=== PATIENT | male | born 1990 | race Two or more races ===

== ENCOUNTER 2017-05-25 19:14 | Emergency (ER) | payer MEDICAID ==
[2017-05-25 19:18] VITALS: RESP 16
--- NOTE | 2017-05-25 19:23 | EDPHY ---
H & P Stated Complaint: URI and abd pain Time Seen by Provider: 05/25/17 19:23 - Personal History Current Tetanus/Diphtheria Vaccine: Unsure Current Tetanus Diphtheria and Acellular Pertussis (TDAP): Unsure - Medical/Surgical History Hx Asthma: No Hx Chronic Respiratory Disease: No Hx Diabetes: No Hx Cardiac Disease: No Hx Renal Disease: No Hx Cirrhosis: No Hx Alcoholism: No Hx HIV/AIDS: No Hx Splenectomy or Spleen Trauma: No Other PMH: scoliosis - Social History Smoking Status: Current every day smoker Constitutional: Initial Vital Signs Temperature (C) 36.6 C 05/25/17 19:16 Heart Rate 99 05/25/17 19:16 Respiratory Rate 16 05/25/17 19:16 Blood Pressure 155/68 H 05/25/17 19:16 O2 Sat (%) 94 05/25/17 19:16 O2 Delivery Mode Room Air Allergies/Adverse Reactions: No Known Allergies Allergy (Verified 05/25/17 19:19) Home Medications: Medication Instructions Recorded No Home Meds 10/28/13 AZITHROMYCIN [Z-PACK] 250 mg PO DAILY #1 packet 05/25/17 Ibuprofen [Motrin] 800 mg PO Q8 #20 tab 05/25/17 Medical Decision Making ED Course/Re-evaluation: CHIEF COMPLAINT: "I've been sick for over a month" HISTORY OF PRESENT ILLNESS: The patient is a 26 y/o male complaining of mild left upper quadrant pain for and sinus pressure for the last month. He took Nyquil for symptoms with mild alleviation. He denies fever, cough, vomiting, diarrhea, or other symptoms. He denies trauma while in senior living. He states he is normally healthy. REVIEW OF SYSTEMS: A 10 point review of systems was performed and is negative with the exception of the elements mentioned in the history of present illness. PHYSICAL EXAM: HR, BP, O2 Sat, RR. Temp noted General Appearance: Alert, well hydrated, appropriate, and non-toxic appearing. Head: Atraumatic without scalp tenderness or obvious injury. Mild frontal sinus tenderness. Eyes: Pupils equal, round, reactive to light and accommodation, EOMI, no trauma , no injection. Ears: Clear bilaterally, no perforation, normal landmarks Nose: Atraumatic, no rhinorrhea, clear. Throat: There is no erythema or exudates, no lesions, normal tonsils, mucus membranes moist. Neck: Supple, nontender, no lymphadenopathy. Respiratory: No retractions, no distress, no wheezes, and no accessory muscle use. Lungs are clear to auscultation bilaterally. Cardiovascular: Regular rate and rhythm, no murmurs, rubs, or gallops. Good capillary refill all extremities. Gastrointestinal: Abdomen is soft, nontender, non-distended, no masses, no rebound, no guarding, no peritoneal signs. Musculoskeletal: Normal active ROM of all extremities, atraumatic. Neurological: Alert, appropriate, and interactive. The patient has non-focal cranial nerves, motor, sensory, and cerebellar exam. Skin: No rashes, good turgor, no nodules on palpation. Past medical history: Denies Past surgical history: Denies Family history: Noncontributory Social history: Homeless. Ketamine abuse. Just got out of senior living last week. Daily smoker. PCP: [facility] DIFFERENTIAL DIAGNOSIS: The differential diagnosis for the patient's symptoms included but was not limited to sinusitis, pneumonia, urinary tract infection, viral syndrome, meningitis, and sepsis. MEDICAL DECISION MAKING: This is a 26 y/o male who presents with a one-month history of sinus pressure and mild LUQ pain. He denies associated symptoms. He has tenderness over his frontal sinuses and a benign abdomen on exam. No indication for imaging. Plan for z-pack and standard cold care instructions. He will be referred to [facility] for follow up. He agrees with plan. Departure - Departure Disposition: Home, Routine, Self-Care Clinical Impression: Sinusitis Qualifiers: Sinusitis location: frontal Chronicity: acute Recurrence: non-recurrent Qualified Code(s): J01.10 - Acute frontal sinusitis, unspecified Condition: Good Instructions: Azithromycin (By mouth), Sinusitis (ED) Additional Instructions: 1. Take Z-pack as prescribed. Be sure to complete the entire prescription. 2. Use Tylenol and ibuprofen as needed for pain and fever. 3. Follow up with [facility] for unimproved symptoms over the next 3-4 days. Referrals: [facility],. [Clinic] - As per Instructions Prescriptions: AZITHROMYCIN [Z-PACK] 250 mg PO DAILY #1 packet Ibuprofen [Motrin] 800 mg PO Q8 #20 tab
[2017-05-25] MEDS ORDERED: IBUPROFEN 800 MG TAB PO ONE (20:00)
[2017-05-25] MEDS ORDERED: AZITHROMYCIN 250 MG TAB PO ONE (20:00)
[2017-05-25 20:12] VITALS: PULSE 92; O2SAT 95
[2017-05-25 20:14] VITALS: BP 120/75; TEMP 98.4
== END 2017-05-25 20:13 | disposition home or self-care (01) ==
DX: J01.10 Acute frontal sinusitis, unspecified (principal); F17.200 Nicotine dependence, unspecified, uncomplicated

== ENCOUNTER 2018-08-21 19:42 | Emergency (ER) | payer MEDICAID, OTHER ==
--- NOTE | 2018-08-21 21:42 | EDPHY ---
General Time Seen by Provider: 08/21/18 20:57 Narrative: CLINICAL IMPRESSION: Lumbar strain ASSESSMENT/PLAN: 28-year-old male presents to the emergency department with low back pain in the setting of heavy lifting at work. Patient is ambulatory with a steady gait, no footdrop, has intact patellar DTRs, intact distal neurovascular exam of the legs , negative straight leg raise test, and no reported bowel or bladder incontinence, urinary retention, saddle anesthesia. No clinical indication to suggest cauda equina, epidural abscess, occult infection, or neurovascular injury. His pain is reproducible to the paraspinal region of L5 radiating to bilateral SI joints. He has no reported pain in the lower extremities. I suspect this is a musculoskeletal injury. I do not feel he warrants an emergent MRI tonight. He has declined narcotic analgesics. He was advised to use [id number] anti-inflammatories and Tylenol, alternate ice and heat, and follow up with primary care. Warning signs for return to ED sooner outlined in discharge. DIFFERENTIAL DX: Differential includes but not limited to acute fracture, strain/sprain, joint dislocation, soft tissue contusion CHIEF COMPLAINT: Back pain HPI: 28-year-old otherwise healthy male presents to the emergency department with complaints of back pain in the setting of heavy lifting at his job. Patient reports he was lifting several 120 lb been tools of wire when he felt a pulling sensation in the low back. He continued to lift the heavy materials. No prior back injury or surgery. No loss of sensation to the legs or groin. No bowel or bladder incontinence or urinary retention. No abdominal pain. No fever or chills. He has not taken anything for the pain. PAST MEDICAL HISTORY: None reported, see ED triage note for more details Pertinent Past Surgical History: None reported Social History: Otherwise healthy, works in a job that involves heavy lifting REVIEW OF SYSTEMS: All other systems negative Constitutional: No fever, no chills Musculoskeletal: No deformity, + joint pain Skin: No rashes, color change or open wounds. Neurological: No sensory loss or weakness. PHYSICAL EXAM: General Appearance: Alert, oriented, appropriate for age, cooperative, NAD, well hydrated, non-toxic appearing, VSS, no hypoxia. Neurological: Alert and oriented x 3, normal sensation and strength of extremities Skin: Warm, dry, no rashes, no nodules on palpation. Musculoskeletal: Reproducible pain along the paraspinal muscles of bilateral L4 -5 S1 radiating to bilateral SI joints. This is worse with range of motion and rotation. Negative straight leg raise test. Ambulates with steady gait and without assistance. No footdrop. Rectal exam not performed Neurologic: Distal 2 point discrimination intact, patellar tendon reflexes 2+ bilaterally. Strength 5/5 bilateral lower extremities. No reported saddle anesthesia, bowel or bladder incontinence. MEDICAL DECISION MAKING: Patient was seen independently. Secondary supervising physician at time of evaluation was Dr. Tobin. Diagnosis: Musculoskeletal lumbar strain. New, requires workup Summary: See assessment and plan for summary of ED visit Independent visualization of images, tracing, or specimens not perform. Patient Progress: Improved . - History Smoking Status: Former smoker - Objective Vital Signs: Initial Vital Signs Temperature (C) 36.5 C 08/21/18 19:53 Heart Rate 76 08/21/18 19:53 Respiratory Rate 16 08/21/18 19:53 Blood Pressure 126/46 H 08/21/18 19:53 O2 Sat (%) 97 08/21/18 19:53 O2 Delivery Mode Room Air Allergies/Adverse Reactions: No Known Allergies Allergy (Verified 05/25/17 19:19) Home Medications: Medication Instructions Recorded NK [No Known Home Meds] 08/21/18 Departure - Departure Disposition: Home, Routine, Self-Care Clinical Impression: Lumbar strain Condition: Good Instructions: Low Back Strain (ED) Additional Instructions: DISCHARGE INSTRUCTIONS FROM YOUR DOCTOR Thank you for visiting our emergency department today. Please keep in mind that discharge from the emergency department does not mean that there is nothing wrong - it simply means that we have not identified an emergency condition that requires further evaluation or treatment in the hospital. You should always plan to follow up with primary care for re-evaluation of your condition in the next 2-3 days. If you have been referred to a specialist, please call as soon as possible (today or tomorrow) to schedule your follow up appointment at the appropriate time. PLEASE REST, USE IBUPROFEN IF NEEDED FOR PAIN, ALTERNATE ICE AND HEAT, AVOID HEAVY LIFTING OR ANY ACTIVITY THAT EXACERBATES THE PAIN. FOLLOW UP WITH A PRIMARY CARE DOCTOR IN 2-3 DAYS. RETURN TO THE EMERGENCY DEPARTMENT SOONER FOR WORSENING BACK PAIN, INABILITY TO WALK, BOWEL OR BLADDER INCONTINENCE, INABILITY TO EMPTY YOUR BLADDER, NUMBNESS TO THE GROIN OR LEGS, FEVERS OR ANY OTHER CONCERNS. People present with illnesses and injuries in different ways, and it is always possible that we have missed something. You may always return for re-evaluation if symptoms worsen or if they are not improving or if you develop new/different symptoms. Again, thank you for choosing our emergency department. We hope that you feel better. Referrals: NONE *PRIMARY CARE P,. [Primary Care Provider] - As per Instructions [facility],. [Clinic] - As per Instructions
[2018-08-21 22:07] VITALS: BP 130/72
== END 2018-08-21 22:06 | disposition home or self-care (01) ==
DX: S39.012A Strain of muscle, fascia and tendon of lower back, initial encounter (principal); X50.9XXA Other and unspecified overexertion or strenuous movements or postures, initial encounter; Y99.0 Civilian activity done for income or pay

== ENCOUNTER 2018-11-02 12:56 | Emergency (ER) | payer MEDICAID ==
--- NOTE | 2018-11-02 13:23 | EDPHY ---
General Time Seen by Provider: 11/02/18 13:22 Narrative: CLINICAL IMPRESSION: Lumbar back pain without radiculopathy ASSESSMENT/PLAN: Patient is a 28-year-old male with no significant medical history who presents with a complaint of low back pain after lifting and moving a heavy object last August. Patient is afebrile and not toxic appearing, he is in no acute distress on arrival. HSNE intact with no significant red flags. Lumbar spine xray today with no acute findings. Physical examination today is consistent with ongoing lumbar back pain without radiculopathy. He has had no saddle paresthesias, lower extremity numbness, tingling, major motor weakness, urinary retention or bowel/bladder incontinence. No indication for emergent MRI. There were no clinical findings to suggest vertebral osteomyelitis, acute fracture, cauda equina syndrome, epidural abscess/hematoma, epidural compression syndrome, renal colic, AAA, dissection, transverse myelitis, herpes zoster, or additional emergent intraabdominal infectious/obstructive process. Patient was given Toradol and a lidoderm patch was placed while in the ED with improvement of his pain. Patient reports difficulty with getting an appointment scheduled between his work schedule and [facility], case management provided resources and reassured him that there are walk-in appointments available at [facility]. He understands the importance of ongoing anti-inflammatory use and will continue the Lidoderm patch as needed. He also understands that he may need additional imaging or even physical therapy for further evaluation of his pain. On repeat exam he is well-appearing, very eager to leave the emergency department. He reports he is feeling much better and his neurological exam remained grossly normal with no focal deficit. Strict return precautions discussed- he will return for increased or unmanageable pain, new injury, new midline back pain, numbness, tingling, weakness of legs, loss of bowel or bladder control, saddle paresthesia , urinary retention, loss of bowel or bladder control, difficulty walking or for any other new, worsening or worrisome symptoms. Patient verbalizes understanding and he is in agreement with plan. DIFFERENTIAL DX: Back pain including but not limited to muscular pain, herniated disc, spine fracture, intra-abdominal causes and urinary tract infection. CHIEF COMPLAINT: Lumbar back pain HPI: Patient is a 28-year-old male with no significant medical history who presents to the emergency department with complaints of ongoing and worsening lumbar back pain after an injury that occurred this past August. Patient reports last August he was moving heavy stools of wire, he went to lift a stool when he experienced sudden onset of midline lumbar pain. He was seen and evaluated in the emergency department and reportedly diagnosed with a muscle strain. Patient has had ongoing and intermittent pain since that time. He reports that he has been unable to schedule an appointment for follow-up as recommended with [facility] secondary to his work schedule and their availability. He takes ibuprofen intermittently but not regularly. He denies any recent fevers, new trauma or injury. He denies any neck pain. He has had no chest pain, shortness of breath or abdominal pain. Patient denies saddle paresthesias, lower extremity numbness, tingling, major motor weakness, urinary retention or bowel/bladder incontinence. No history of IV drug use. PMH: Back pain Family History: Noncontributory Social History: Former smoker, denies frequent alcohol use, denies any history of IV drug use REVIEW OF SYSTEMS: All other systems negative Constitutional: No fever, no chills, appetite change. Eyes: No discharge, vision change ENT: No sore throat, congestion, ear pain. Cardiovascular: No chest pain, no palpitations. Respiratory: No cough, no shortness of breath. Gastrointestinal: No abdominal pain, no vomiting, diarrhea. Genitourinary: No hematuria, dysuria, flank pain, pelvic pain Musculoskeletal: No back pain, joint swelling, joint pain, myalgias. Skin: No rashes, color change. Neurological: No headache, dizziness, weakness. PHYSICAL EXAM: General Appearance: Alert, oriented, appropriate, cooperative, NAD, well hydrated, non-toxic appearing, VSS, no hypoxia. HENT: Normocephalic, atraumatic. Bilateral external ears are normal. Bilateral tympanic membranes are normal with pearly al reflex. Nares are clear, mucosa is pink. Oropharynx is clear, uvula is midline. There is no tonsillar enlargement or exudate. The dentition is normal. Eyes: PERRLA, no acute vision change, nystagmus, swelling, discharge, pain or photosensitivity. Conjunctiva pink, no pallor or injection Neck: Supple, nontender, no lymphadenopathy, no midline pain, FROM, no meningismus. Back: No step-off, palpable bony abnormality, edema, erythema or ecchymosis of the cervical, thoracic or lumbar spines. TTP: Midline lumbar spine. FROM of all spines. 5/5 and equal strength of the UEs and LEs bilaterally including shoulder shrug. Pulses: 2+ and equal radial, DP and PT pulses bilaterally. Sensation intact and symmetric to light touch from face, UEs and LEs bilaterally. Straight leg raise negative bilaterally. High Sensitivity Neuro Exam (HSNE) L1: inner thigh sensation- no deficit L2: ADduct thigh (cross legs) - no deficit L3: Extend knee- no deficit L4: Ankle dorsiflexion- no deficit L5: Great toe extension- no deficit S1: Flex knee- no deficit S3-4: bladder/bowel function- no deficit HSNE no deficit Red flags: MINOR (1 pt each) Alcohol abuse 0 DM 0 Renal failure 0 Night pain 1 3rd visit in <= 20 days 0 MAJOR (3 pts each) IVDA 0 Fever without focus 0 Recent/current systemic infection 0 Immunosuppression (physician discretion) 0 Recent spinal fracture/spinal procedure (ESR is not a good screen for spinal epidural hematoma) 0 New bladder/bowel incontinence or retention 0 Total Red Flag score 1 Total Red Flag score <= 3 AND neuro exam is at baseline ---> no MRI is recommended Respiratory: There are no retractions, lungs are clear to auscultation. Cardiac: Regular rate and rhythm, no murmurs or gallops. Gastrointestinal: Abdomen is soft, nontender, bowel sounds normal, no masses/ hernia, no rigidity, guarding or focal peritoneal findings. Neurological: Alert and oriented x 3, CN 2-12 grossly intact, normal gait no ataxia, DTR's intact, normal sensation and strength Skin: Warm, dry, no rashes, no nodules on palpation. Musculoskeletal: Extremities are symmetrical, full range of motion, no tenderness, deformity, swelling, or erythema. Psychiatric: Patient is oriented X 3, there is no agitation. MEDICAL DECISION MAKING: Patient was seen independently. Secondary supervising physician at time of evaluation was Dr. Dangelo, he did not evaluate this patient however we discussed case and plan of care. Diagnosis: Lumbar back pain without radiculopathy. New, requires workup Summary: See Assessment and Plan for summary of ED visit Clinical lab tests: Not applicable. Independent visualization of images, tracing, or specimens: Yes. Decision to obtain medical records or history from someone other than the patient: No Review / Summarize previous medical records: Yes Discussed patient with another provider: Yes, Dr. Dangelo Patient Progress: Stable, discharged. - Diagnostics Imaging Results: Imaging Impressions Lumbar Spine X-Ray 11/02/18 13:51 Impression: Unremarkable lumbar spine radiograph. - History Smoking Status: Former smoker - Objective Vital Signs: Initial Vital Signs Temperature (C) 37.1 C 11/02/18 13:11 Heart Rate 74 11/02/18 13:11 Respiratory Rate 16 11/02/18 13:11 Blood Pressure 133/80 H 11/02/18 13:11 O2 Sat (%) 97 11/02/18 13:11 O2 Delivery Mode Room Air Allergies/Adverse Reactions: No Known Allergies Allergy (Verified 11/02/18 13:11) Home Medications: Medication Instructions Recorded NK [No Known Home Meds] 08/21/18 Medications Given: Discontinued Medications Ketorolac Tromethamine (Toradol) 30 mg IM EDNOW ONE Stop: 11/02/18 13:52 Last Admin: 11/02/18 14:03 Dose: 30 mg Miscellaneous Medication (Icy Hot Lidocaine/Menthol 4%/1% Patch) 1 patch TD EDNOW ONE Stop: 11/02/18 13:52 Last Admin: 11/02/18 14:03 Dose: 1 patch Departure - Departure Disposition: Home, Routine, Self-Care Clinical Impression: Lumbar back pain Condition: Good Additional Instructions: DISCHARGE INSTRUCTIONS FROM YOUR DOCTOR Thank you for visiting our emergency department today. Please keep in mind that discharge from the emergency department does not mean that there is nothing wrong - it simply means that we have not identified an emergency condition that requires further evaluation or treatment in the hospital. You should always plan to follow up with primary care for re-evaluation of your condition in the next 2-3 days. [facility] has a walk-in clinic, please utilize this service as needed if you cannot get an appointment. Most back pain improves quickly with rest and anti-inflammatory medicines. The majority of back pain will improve regardless of treatment within 4-6 weeks. Regardless, I recommend you follow up with primary care for recheck as soon as possible. Additional evaluation as an outpatient may be needed, and further therapeutic modalities such as chiropractic or PT may be helpful. You may also need an MRI for further evaluation of your ongoing pain. Rest. Avoid lifting greater than 10-15 pounds. Avoid twisting or prolonged sitting. Movement and gentle walking is good for your back. Try to walk for 15-10 minutes on an even surface 3 or 4 times a day as tolerated and increase gentle exercise as your back improves. Apply ice to your low back during acute pain phase, later a heating pad set to a low setting or hot tub may be helpful to help relax muscles. Ibuprofen 600 mg every 6-8 hours with food. Stop for stomach upset. Do not exceed 2400 mg in 24 hours. Avoid these medications for the next 8 hours as you received Toradol today in the ED. Salonpas pain patch if you feel this helps you, you may purchase this over-the- counter at your pharmacy. Please follow the instructions on the packaging. Return for increased or unmanageable pain, new injury, new midline back pain, numbness, tingling, weakness of your legs, loss of bowel or bladder control, inability to urinate, burning or pain with urination, blood in the urine, fever , chills, abdominal pain, vomiting, difficulty walking, dizziness, fainting, chest pain, shortness of breath, neck pain, neck stiffness, other site of back pain, calf pain, leg redness or swelling, or for any other new, worsening or worrisome symptoms. People present with illnesses and injuries in different ways, and it is always possible that we have missed something. You may always return for re-evaluation if symptoms worsen or if they are not improving or if you develop new/different symptoms. Again, thank you for choosing our emergency department. We hope that you feel better. Referrals: [facility],. [Clinic] - 1-2 days without fail
[2018-11-02] MEDS ORDERED: KETOROLAC 30 MG/1 ML SDV IM ONE (13:51)
[2018-11-02] MEDS ORDERED: LIDOCAINE 4%/MENTHOL 1% PATCH TD ONE (13:51)
[2018-11-02 14:31] VITALS: BP 129/80
--- NOTE | 2018-11-02 18:28 | ASMTCMCOM ---
CM Note CM Note Notes: ED Provider requesting CM assistance with getting pt a sooner appointment at [facility]. Spoke w/pt and he states he has an appt at [facility] on 11/16/18. [facility] and they said they will reach out to the pt ([phone]) and try to get him in sooner. CM also provided pt w/[facility] pamphlet. Pt appreciative of assistance. CM available for further assistance if needed. Date Signed: 11/02/2018 06:28 PM Electronically Signed By:Yesy Handley RN
[2018-11-02] MEDS ORDERED: PATCH REMOVAL 1 EA PATCH TD SCH (21:00)
== END 2018-11-02 14:51 | disposition home or self-care (01) ==
DX: M54.5 Low back pain (principal)
CPT/HCPCS: J1885